=== PATIENT | female | born 1990 | race Caucasian/White ===

== ENCOUNTER → 2019-12-23 10:46 | Outpatient (CLI) | payer OTHER, MEDICAID, SELFPAY ==
--- NOTE | 2019-12-23 10:48 | DI.US.S_ITS ---
PROCEDURE: US OB LIMITED INDICATIONS: ULTRASOUND FOR DATES. OUTSIDE/PRIOR DATING DATA: Last menstrual period (LMP): 08/2119. LMP-based estimated date of delivery (GRISELDA): 05/28/20. First dating scan (date and location): 12/23/19. Estimated date of delivery (GRISELDA) from first dating scan: 05/31/20. TECHNIQUE: Real-time scanning was performed of the fetus, with image documentation and biometric measurements. Endovaginal scanning: None COMPARISON: None. FINDINGS: General: A single living intrauterine gestation is present. Presentation: Breech. Placenta: Placental position is breech, without previa. Lower placental edge 2 cm or less from internal cervical os qualifies as low lying placenta. Amniotic fluid index: Posterior cm, normal range is 5-24 cm. heart rate: 143 beats per beats per minute. Maternal cervical canal: 5.0 cm long. Normal lower limit is 2.5 cm. biometrics: Biparietal diameter: 17 weeks 2 days Head circumference: 16 weeks 6 days Abdominal circumference: 17 weeks 2 days Femur length: 16 weeks 6 days Estimated gestational age from initial scan: 17 weeks 1 day Composite gestational age from present scan: 17 weeks 1 day Estimated weight and percentile: 181 g Measurement variability for biometric dating: +/- 7 days from 14 weeks to 15 weeks 6 days gestation, +/- 10 days from 16 weeks to 21 weeks 6 days gestation, +/- 2 weeks from 22 weeks to 27 weeks 6 days gestation, +/- 3 weeks for 28 weeks gestation or later. weight reference: 4500 g or EFW >90/95% is considered macrosomia or large for gestational age. EFW <10% is small for gestational age. EFW 5% or less is considered intra-uterine growth restriction. Other: Limited anatomic survey. IMPRESSION: 1. Single living IUP with mean composite gestational age of 17 weeks 1 day corresponding to ultrasound GRISELDA of 05/31/20. 2. Limited anatomic survey. Followup recommended. Dictated by: Edison FISHER Interpreted: Danuta Vargas MD on 12/23/2019 at 14:06 Approved by: Danuta Vargas M.D. on 12/23/2019 at 14:16
== END ==
PROVIDERS: Referring Provider Family Medicine; Visit Provider Family Medicine
DX: Z36.87 Encounter for antenatal screening for uncertain dates (principal); Z3A.17 17 weeks gestation of pregnancy
CPT/HCPCS: 76801; 76815

== ENCOUNTER → 2020-01-09 09:30 | Outpatient (CLI) | payer OTHER, MEDICAID, SELFPAY ==
--- NOTE | 2020-01-09 09:34 | DI.US.S_ITS ---
PROCEDURE: US OB >= 14 WEEKS FETUS INDICATIONS: ANATOMY OUTSIDE/PRIOR DATING DATA: Last menstrual period (LMP): 08/2119. LMP-based estimated date of delivery (GRISELDA): 05/28/20. First dating scan (date and location): 12/23/19. Estimated date of delivery (GRISELDA) from first dating scan: 05/31/20. TECHNIQUE: Real-time scanning was performed of the fetus, with image documentation and biometric measurements. COMPARISON: [facility], OB LIMITED, 12/23/2019, 11:15. FINDINGS: General: A single live intrauterine gestation is present. Presentation: Transverse, with the head to the maternal right. Placenta: Placental position is posterior. There is a marginal placenta previa seen, as seen on image 8. Amniotic fluid index: 12.3 cm, normal range is 5-24 cm. heart rate: 156 beats per minute. Maternal cervical canal: 5.7 cm long. Normal lower limit is 2.5 cm. biometrics: Biparietal diameter: 4.3 cm equals 18 weeks 6 days Head circumference: 16.8 cm equals 19 weeks 3 days Abdominal circumference: 13.8 cm equals 19 weeks 2 days Femur length: 3.2 cm equals 20 weeks Estimated gestational age from initial scan: 19 weeks 4 days Composite gestational age from present scan: 19 weeks 3 days Estimated weight and percentile: 297 g, 42nd percentile Measurement variability for biometric dating: +/- 7 days from 14 weeks to 15 weeks 6 days gestation, +/- 10 days from 16 weeks to 21 weeks 6 days gestation, +/- 2 weeks from 22 weeks to 27 weeks 6 days gestation, +/- 3 weeks for 28 weeks gestation or later. weight reference: 4500 g or EFW >90/95% is considered macrosomia or large for gestational age. EFW <10% is small for gestational age. EFW 5% or less is considered intra-uterine growth restriction. Anatomic survey: Neuro: Ventricles are non-dilated at less than 10 mm. Cisterna magna is normal at 3-11 mm. Cerebellum is normal in size and morphology. Nuchal skin fold: Normal at less than 6 mm between 14-21 weeks gestational age. Face: Nose and lips, facial profile are normal. Spine: No evidence for spina bifida. Heart: 4-chambered heart is present, with normal ventricular outflow tracts. Diaphragm: Diaphragm is intact. Stomach: Left-sided stomach is present. Kidneys: No hydronephrosis. Normal is less than 5 mm in 2nd trimester, less than 7 mm in 3rd trimester. Cord: 3-vessel cord has orthotopic insertion. Bladder: Normal in size. Extremities: All 4 extremities identified. IMPRESSION: No anatomic abnormalities are identified. Normal interval growth when compared to the prior ultrasound examination. A marginal placenta previa is seen. Dictated by: Alvin Copeland M.D. on 01/09/2020 at 9:37 Approved by: Alvin Copeland M.D. on 01/09/2020 at 9:40
== END ==
PROVIDERS: Referring Provider Family Medicine; Visit Provider Family Medicine
DX: Z36.89 Encounter for other specified antenatal screening (principal); Z34.02 Encounter for supervision of normal first pregnancy, second trimester
CPT/HCPCS: 76811

== ENCOUNTER → 2020-02-10 09:16 | Outpatient (CLI) | payer OTHER, MEDICAID, SELFPAY ==
--- NOTE | 2020-02-10 09:18 | DI.US.S_ITS ---
PROCEDURE: US OB LIMITED INDICATIONS: MARGINAL PLACENTA PREVIA OUTSIDE/PRIOR DATING DATA: Last menstrual period (LMP): 08/22/19. LMP-based estimated date of delivery (GRISELDA): 05/28/20. First dating scan (date and location): 12/23/19. Estimated date of delivery (GRISELDA) from first dating scan: 05/31/20. TECHNIQUE: Real-time scanning was performed of the fetus, with image documentation. COMPARISON: [facility], OB >= 14 WEEKS FETUS, 01/09/2020, 9:55. [facility], OB LIMITED, 12/23/2019, 11:15. FINDINGS: A single living intrauterine gestation is present. Presentation: Vertex. Placenta: Placental position is posterior. Placenta is approximately 4.8 cm from cervical os. Amniotic fluid index: Not measured heart rate: 152 beats per minute. Maternal cervical canal: 5.3 cm long. Estimated gestational age from initial scan: 24 weeks one day. IMPRESSION: 1. Placenta is approximately 4.8 cm from the cervical os. Dictated by: Danuta Vargas M.D. on 02/10/2020 at 15:09 Approved by: Danuta Vargas M.D. on 02/10/2020 at 15:11
== END ==
PROVIDERS: Referring Provider Family Medicine; Visit Provider Family Medicine
DX: O44.22 Partial placenta previa NOS or without hemorrhage, second trimester (principal); Z3A.24 24 weeks gestation of pregnancy
CPT/HCPCS: 76815

== ENCOUNTER → 2020-02-17 10:02 | Outpatient (CLI) | payer OTHER, MEDICAID, SELFPAY ==
[2020-02-17 11:04] LABS: Add Manual Diff / Slide Review NO; Basophils Absolute Auto 0 /uL (0-100); Basophils Percent Auto 0.3 % (0-2); Eosinophils Absolute Auto 100 /uL (0-450); Eosinophils Percent Auto 0.9 % (2-4); Hematocrit 32.9 % (36-46); Hemoglobin 11.6 g/dL (12.0-16.0); Lymphocytes Absolute Auto 1300 /uL (1100-4500); Lymphocytes Percent Auto 14.9 % (25-40); Mean Corpuscular HGB Conc 35.3 % (30-36); Mean Corpuscular Hemoglobin 32.4 PG (26-34); Mean Corpuscular Volume 91.7 fL (80-100); Monocytes Absolute Auto 600 /uL (0-900); Monocytes Percent Auto 7.4 % (3-14); Neutrophils Absolute Auto 6700 /uL (1500-7000); Neutrophils Percent Auto 76.5 % (50-75); Platelet Count 214 X10^3/uL (150-400); Red Blood Cell Count 3.59 X10^6/uL (4.0-5.2); Red Cell Distribution Width 13.2 % (11.6-14.8); White Blood Cell Count 8.8 X10^3/uL (4.5-11.0)
[2020-02-17 19:27] LABS: HIV 1 & 2 Ab/Ag 4th Gen Combo NEGATIVE (NEGATIVE); Hep C Virus Ab w/Reflex Quant NEGATIVE s/c (NEGATIVE); Hepatitis B Surface Antigen NEGATIVE s/c (NEGATIVE); Rubella Antibody IgG 7.2 IU/mL (>15)
[2020-02-18 05:33] LABS: RPR Screen Non Reactive (Non Reactive)
[2020-02-18 05:36] LABS: Varicella IgG Antibody 293 index (Immune >165)
[2020-02-19 15:51] LABS: Appearance Urine UA CLEAR; Bilirubin Urine UA NEGATIVE (NEGATIVE); Color Urine UA YELLOW; Glucose Urine UA NEGATIVE (Negative); Ketones Urine UA NEGATIVE (NEGATIVE); Leukocyte Esterase Urine UA 3+ (NEGATIVE); Nitrite Urine UA NEGATIVE (Negative); Occult Blood Urine UA NEGATIVE (Negative); Protein Urine UA NEGATIVE (Negative); Specific Gravity Urine UA 1.015 (1.000-1.035); Urobilinogen Urine UA 0.2 E.U./dL (0.2)
[2020-02-19 15:56] LABS: RBC Urine None Seen (0-5/HPF); pH Urine UA 6.5 (4.5-8.0)
[2020-02-19 16:00] LABS: Amorphous Sediment Urine 1+; Bacteria Urine Moderate (10-30); Squamous Epithelial Cell Urine 1-5 /HPF (0-5/HPF); WBC Urine 5-10/HPF (0-5/HPF)
[2020-02-19 16:01] LABS: Culture Indicated Urine Specimen Cultured
== END ==
PROVIDERS: Referring Provider Family Medicine; Visit Provider Family Medicine
DX: Z34.81 Encounter for supervision of other normal pregnancy, first trimester (principal)
CPT/HCPCS: 36415; 80055; 81003; 81015; 85025; 86592; 86762; 86787; 86803; 86850; 86900; 86901; 87086; 87340; 87389

== ENCOUNTER → 2020-03-16 13:01 | Outpatient (CLI) | payer OTHER, MEDICAID, SELFPAY ==
[2020-03-16 15:54] LABS: Add Manual Diff / Slide Review NO; Basophils Absolute Auto 0 /uL (0-100); Basophils Percent Auto 0.4 % (0-2); Eosinophils Absolute Auto 100 /uL (0-450); Eosinophils Percent Auto 1.1 % (2-4); Hemoglobin 11.6 g/dL (12.0-16.0); Lymphocytes Absolute Auto 1500 /uL (1100-4500); Lymphocytes Percent Auto 14.9 % (25-40); Mean Corpuscular HGB Conc 35.2 % (30-36); Mean Corpuscular Hemoglobin 32.1 PG (26-34); Mean Corpuscular Volume 91.4 fL (80-100); Monocytes Absolute Auto 700 /uL (0-900); Monocytes Percent Auto 6.9 % (3-14); Neutrophils Absolute Auto 7800 /uL (1500-7000); Neutrophils Percent Auto 76.7 % (50-75); Platelet Count 244 X10^3/uL (150-400); Red Blood Cell Count 3.61 X10^6/uL (4.0-5.2); Red Cell Distribution Width 12.9 % (11.6-14.8); White Blood Cell Count 10.2 X10^3/uL (4.5-11.0)
[2020-03-16 16:02] LABS: GTT (PREG) 1 Hour PP 50gm Dose 146 mg/dL (76-139)
== END ==
PROVIDERS: PCP Family Medicine; Referring Provider Family Medicine; Visit Provider Family Medicine
DX: Z34.81 Encounter for supervision of other normal pregnancy, first trimester (principal)
CPT/HCPCS: 36415; 82950; 85025

== ENCOUNTER 2020-03-23 09:58 | Outpatient (CLI) | payer OTHER, MEDICAID, SELFPAY ==
[2020-03-23 12:14] LABS: Glucose Fasting Gestational 83 mg/dL (76-95)
[2020-03-23 13:35] LABS: Glucose 1 Hour Gest 134 mg/dL (76-180)
[2020-03-23 14:04] LABS: Glucose Tol Interp,Gestational INTERPRETATION
[2020-03-23 14:10] LABS: Glucose 2 Hour Gest 133 mg/dL (76-155)
[2020-03-23 15:01] LABS: Glucose 3 Hour Gest 117 mg/dL (76-140)
== END 2020-04-13 11:44 ==
LOC: LAB 09:59
PROVIDERS: PCP Family Medicine; Referring Provider Family Medicine; Visit Provider Family Medicine
DX: O26.899 Other specified pregnancy related conditions, unspecified trimester (principal); R73.09 Other abnormal glucose
CPT/HCPCS: 36415; 59025; 82951; 82952; 84112

== ENCOUNTER 2020-04-13 11:09 | Outpatient (CLI) | payer OTHER, MEDICAID, SELFPAY ==
--- NOTE | 2020-04-13 11:35 | PM.OBTRLD ---
Visit Information Visit Information Date of evaluation: 04/13/20 Primary OB Provider: Taylor Pacheco Reason for Evaluation: Yes rupture of membranes Comments/Additional reasons for admission: Pt leaking fluid through the night, starting around 9pm. No vaginal bleeding. She has been cramping more as well. Slightly nauseous this morning. [facility] Medical History (Updated 04/13/20 @ 11:37 by Taylor Pacheco MD) Anxiety and depression (Acute) Dental root implant present (Acute) Migraine (Acute) Pyloric stenosis (Acute) (spontaneous vaginal delivery) (Acute) Surgical History (Updated 11/20/19 @ 14:28 by Meg Humphrey RN) [place] teeth extracted (Acute ~2013) Family History (Updated 11/20/19 @ 14:29 by Meg Humphrey, MALIK) Mother Family estrangement Father Lung cancer Epilepsy Grandfather MVA (motor vehicle accident) Grandmother MVA (motor vehicle accident) Social History marital status: unknown number of children: 1 household members: children pets and animals: Yes (cat X 1 and aware) education level: high school occupational status: employed current occupational exposures/hazards: No special amber needs: No Smoking Status: Never smoker second hand exposure: No alcohol intake: former substance use type: does not use Evaluation Evaluation Baseline heart rate: 135 Variability: Moderate (11-25) monitor accelerations: Present monitor decelerations: Absent Non-invasive Membranes Rupture Test: negative Diagnosis, Plan/Disposition Final Diagnosis (1) Amniotic fluid leaking: Status: Acute Plan/Disposition Plan: at 33w4d. Pt here due to concern for ROM. Amnisure negative. No evidence of ROM. No contractions on monitor. Safe for d/c home. OB Disposition: home
== END 2020-04-13 11:45 | disposition home or self-care (01) ==
LOC: LABOR 12:26 → OB 04-22 13:17
PROVIDERS: PCP Family Medicine; Referring Provider Family Medicine; Visit Provider Family Medicine
DX: O26.893 Other specified pregnancy related conditions, third trimester (principal); N89.8 Other specified noninflammatory disorders of vagina; Z3A.33 33 weeks gestation of pregnancy
CPT/HCPCS: 59025; G0378; G0379

== ENCOUNTER → 2020-04-27 11:32 | Outpatient (CLI) | payer OTHER, MEDICAID, SELFPAY ==
[2020-04-28 09:36] LABS: Strep Grp B PCR NEG for Grp B Strep
== END ==
PROVIDERS: PCP Family Medicine; Visit Provider Family Medicine
DX: Z34.03 Encounter for supervision of normal first pregnancy, third trimester (principal)
CPT/HCPCS: 87653

== ENCOUNTER 2020-05-21 06:17 | Inpatient (IN) | payer OTHER, MEDICAID, SELFPAY ==
--- NOTE | 2020-05-21 07:08 | PM.OBHP.1 ---
OB HPI Date/Time Date of admission: 05/21/20 Date Patient Seen: 05/21/20 History of Present Condition Chief complaint: EVALUATION OF LABOR : 2 Para: 1 Estimated Date of Delivery: 05/28/20 Estimated Gestational Age (weeks): 39w0d Narrative: [place] Bethea is a 29 year old at 39w0d here with regular painful contractions. Pt reports contractions starting around 3am, increasing in frequency and intensity since then. No LOF or vaginal bleeding. History of Present care: good care, initiated at week # (13) and pounds weight gain (28) Ultrasounds: normal 1st trimester US and normal mid trimester US (marginal previa resolved on repeat ultrasound) Obstetrical complications: none Medical complications: other (COVID + asymptomatic 2nd trimester, repeat testing negative) Preadmission Labs Blood type: A (+) positive -: Antibody screen: negative, GBS status: negative, HBsAG: negative, HIV: negative and RPR/VDLR: negative -: Rubella: not immune and Varicella: immune HCT: 33.0 HCAB: negative 1 hr GTT: 146 3 hr GTT: 1 hr (134), 2 hr (133) and 3 hr (117) Fasting blood glucose: 83 Prior (ies) History: 09/28/16 - at 39w2d, 8lb2oz male, no complications PFSH Medical History (Updated 04/27/20 @ 11:25 by Taylor Pacheco MD) Anxiety and depression (Acute) Dental root implant present (Acute) Migraine (Acute) Pyloric stenosis (Acute) (spontaneous vaginal delivery) (Acute) Surgical History (Updated 11/20/19 @ 14:28 by Meg Humphrey RN) [place] teeth extracted (Acute ~2013) Family History (Updated 11/20/19 @ 14:29 by Meg Humphrey RN) Mother Family estrangement Father Lung cancer Epilepsy Grandfather MVA (motor vehicle accident) Grandmother MVA (motor vehicle accident) Social History marital status: unknown number of children: 1 household members: children pets and animals: Yes (cat X 1 and aware) education level: high school occupational status: employed current occupational exposures/hazards: No special amber needs: No Smoking Status: Never smoker second hand exposure: No alcohol intake: former substance use type: does not use Meds Home Medications and Allergies Home Medications Medication Instructions Recorded Confirmed Type prenat.vits,ld,rin-aubg-ovjjm 1 tab PO DAILY 11/20/19 04/13/20 History promethazine 25 mg tablet 25 mg PO TID PRN #30 tab 12/13/19 04/13/20 Rx metoclopramide HCl 5 mg tablet 5 mg PO QACHS #20 tab 03/09/20 04/13/20 Rx Allergies Allergy/AdvReac Type Severity Reaction Status Date / Time No Known Drug Allergies Allergy Verified 05/21/20 07:37 Exam Narrative Exam Narrative: Gen: NAD, sitting comfortably in bed, appears well CV: RRR, no murmurs Resp: clear to auscultation bilaterally Abd: soft, gravid, nondistended, nontender Ext: no edema Objective Labs Result Diagrams: 05/21/20 07:15 Assessment and Plan Assessment and Plan Assessment and Plan narrative: 29yo at 39w0d who presented in active labor. GBS negative, Rh positive. - Expectant management - FHT reassuring - GBS negative, no prophylaxis indicated - Epidural for pain control now.
[2020-05-21] MEDS: LACTATED RINGERS 1,000 ML 100 ML IV ×2 (07:15→08:45)
[2020-05-21 07:35] VITALS: BP 126/92
[2020-05-21] MEDS: FENT 2MCG/ML BUPIV 0.125% EPI 200 MCG/100 ML PLAST..BAG 8 MCG EPIDURAL (07:51)
[2020-05-21 08:36] LABS: Add Manual Diff / Slide Review NO; Basophils Absolute Auto 100 /uL (0-100); Basophils Percent Auto 0.7 % (0-2); Eosinophils Absolute Auto 100 /uL (0-450); Eosinophils Percent Auto 0.4 % (2-4); Hematocrit 36.6 % (36-46); Hemoglobin 12.1 g/dL (12.0-16.0); Lymphocytes Absolute Auto 1800 /uL (1100-4500); Lymphocytes Percent Auto 12.5 % (25-40); Mean Corpuscular HGB Conc 32.9 % (30-36); Mean Corpuscular Hemoglobin 29.3 PG (26-34); Monocytes Absolute Auto 800 /uL (0-900); Monocytes Percent Auto 5.9 % (3-14); Neutrophils Absolute Auto 11400 /uL (1500-7000); Neutrophils Percent Auto 80.5 % (50-75); Platelet Count 243 X10^3/uL (150-400); Red Blood Cell Count 4.11 X10^6/uL (4.0-5.2); Red Cell Distribution Width 13.6 % (11.6-14.8); White Blood Cell Count 14.2 X10^3/uL (4.5-11.0)
[2020-05-21 09:26] LABS: COVID19 -Nasal RAPID Negative (Negative)
--- NOTE | 2020-05-21 13:02 | PM.OBPNLAB ---
Date/Time Date Patient Seen: 05/21/20 Time Patient Seen: 13:02 Pain Control Pain control: epidural Pelvic Exam Comments: anterior rim/100/0. AROM with examination with production of meconium-stained fluid. Contractions Contraction frequency (min): 2 Status status: Category l Heart Rate Baseline: 130 Monitor Accelerations: Present Monitor Decelerations: Absent Monitor Variability: Moderate Assessment and Plan Comments: 29yo at 39w0d who presented in active labor. GBS negative, Rh positive. AROM with meconium-stained fluids. - Expectant management - FHT reassuring - GBS negative, no prophylaxis indicated - Epidural for pain control now.
[2020-05-21] MEDS: OXYTOCIN 10 UNIT/ML VIAL 20 UNIT (13:46)
--- NOTE | 2020-05-21 14:33 | PM.OBPRVD ---
Labor & Delivery Delivery date: 05/21/20 Intrapartal events: None Cervical ripening method: none Induction method: none Delivery augmentation: rupture of membranes Delivery monitor: external FHT Route of delivery: Episiotomy description: None L&D Laceration Description: Perineal - 2nd Degree Estimated blood loss (mL): 200 Anesthesia type: Epidural Complications: None Narrative: PROCEDURE: at 39w0d presented in active labor and was admitted to Labor and Delivery. The patient progressed through the 1st stage over 10 hours. Pain was controlled with an epidural. AROM was performed with production of meconium-stained fluid. The patient progressed through the 2nd stage over 30 minutes and delivered a viable male with APGARs 8/9 at 13:36 via without complications. Nuchal cord x1 was reduced immediately after delivery, and the cord was clamped and cut after it stopped pulsating. The perineum and vagina were inspected with 2nd degree laceration repaired with 3-O Chromic PREPROCEDURE DIAGNOSIS: Intrauterine at 39w0d GBS negative RH positive POSTPROCEDURE DIAGNOSIS: Intrauterine at 39w0d, delivered Same as preprocedure ROM APPEARANCE: Meconium-stained BABY A WEIGHT: 7lb9oz BABY A NUCHAL CORD: x1, reduced after delivery PLACENTA DELIVERY TIME: 13:42 PLACENTA APPEARANCE: Intact Baby 1: Infant gender: Male Presentation: vertex position: Right Occiput Anterior Placenta delivery description: Spontaneous cord vessel description: 3 Vessels score (1 min): 8 score (5 min): 9 Plan for aftercare: Normal care
[2020-05-21] MEDS: IBUPROFEN 600 MG TABLET PO (22:19)
[2020-05-21] MEDS: ACETAMINOPHEN 325 MG TABLET 650 MG PO (22:20)
[2020-05-22] MEDS: IBUPROFEN 600 MG TABLET PO (06:38)
[2020-05-22] MEDS: ACETAMINOPHEN 325 MG TABLET 650 MG PO (06:38)
[2020-05-22] MEDS: LANOLIN OINT 7 GM 1 APPLIC TOP (06:39)
--- NOTE | 2020-05-22 08:06 | P.DS_ITS ---
Discharge Providers Provider Date of admission: 05/21/20 06:17 Discharge Date: 05/22/20 Primary care physician: Taylor Pacheco MD Consults: 05/21/20 07:15 Consult to Anesthesiology Urgent Comment: Consulting Provider: Anesthesiologist Reason for consultation: epidural 05/22/20 14:20 Consult to Internal Medicine Specialist Routine Comment: Discharge provider: Radha Jha DO Summary Hospital Course Date Patient Seen: 05/22/20 Time Patient Seen: 07:45 Procedures: Spontaneous vaginal delivery Epidural analgesia Hospital Course: Patient is a 29-year-old now 2 after uncomplicated spontaneous vaginal delivery on 05/21/20. Patient presented in active labor, received an epidural and went on to deliver a vigorous male . A second-degree laceration was repaired. course uncomplicated. Patient is ambulating, voiding, passing flatus without difficulty. Vaginal bleeding is light to moderate. Pain controlled with ibuprofen only. is going well. No issues in the . Advised patient to call for fevers, severe pain or bleeding through more than a pad an hour. Follow-up with Dr. Pacheco in 6 weeks. Peripartum Data Delivery Method: Natural Vaginal Laceration Description: Vaginal - 2nd Degree complications: none [place] 1: Gender: Male Disposition of : home Discharge Diagnosis (1) Spontaneous vaginal delivery: Status: Acute (2) 39 weeks gestation of : Status: Acute Time Spent with Patient Time attestation: Total time spent providing and/or coordinating discharge services: Time spent: Less than 30 minutes Objective Labs Result Diagrams: 05/21/20 07:15 Labs: Laboratory Results - last 24 hr 05/21/20 05/21/20 05/21/20 07:15 07:15 08:15 WBC 14.2 H RBC 4.11 Hgb 12.1 Hct 36.6 MCV 89.0 MCH 29.3 MCHC 32.9 RDW 13.6 Plt Count 243 Neut % (Auto) 80.5 H Lymph % (Auto) 12.5 L [place] % (Auto) 5.9 Eos % (Auto) 0.4 L Baso % (Auto) 0.7 Neut # (Auto) 86399 H Lymph # (Auto) 1800 [place] # (Auto) 800 Eos # (Auto) 100 Baso # (Auto) 100 COVID-19 PCR Negative Blood Type A Positive Antibody Screen Negative Exam Vital Signs (past 8 hours): Temperature 98.2? blood pressure 123/76 heart rate 69 respirations 18 Narrative Exam Narrative: General: Awake and alert, no acute distress. HEENT: NCAT, EOMI, moist oral mucosa CV: Regular rate and rhythm, no murmurs, rubs or gallops Lungs: CTAB, no wheezes, rales, or rhonchi Abdomen: Soft, nontender; bowel tones active; uterus firm 2 cm below umbilicus Extremities: Warm, no edema, 2+ pedal pulses bilaterally Discharge Plan Discharge Plan Patient Disposition: Home Discharge comment: Call for fevers, severe pain or bleeding through more than a pad an hour period Discharge orders & Medications Prescriptions: New docusate sodium [DOK] 100 mg Capsule 100 mg PO DAILY Qty: 30 RF: 0 ibuprofen 600 mg Tablet 600 mg PO Q6HR PRN (Reason: Pain, Mild (1-3)) Qty: 30 RF: 0 Continued prenat.vits,ld,ryh-skrc-wybgo Tablet 1 tab PO DAILY RF: 0 Discontinued promethazine 25 mg tablet 25 mg PO TID PRN (Reason: headache) Qty: 30 RF: 0 metoclopramide HCl 5 mg tablet 5 mg PO QACHS Qty: 20 RF: 0 Follow up/Referrals: Taylor Pacheco MD [Primary Care Provider] - Diet/Activity/Treatments Diet: Diet as Tolerated Skin/Wound/Dressing Care Report to your healthcare provider any signs of infection, such as:: chills, fever, night sweats, increased pain, unusual drainage and unusual redness Visit Report/Discharge Packet Visit Report Forms: Patient Portal/API Discharge Data Primary Care Provider: Taylor Pacheco
[2020-05-22 15:51] VITALS: BP 119/75; PULSE 79; RESP 16; TEMP 36.2
[2020-05-22] MEDS: MEASLES,MUMPS,RUBELLA VACC/PF 0.5 ML VIAL SUBCUT (16:22)
== END 2020-05-22 16:45 | disposition home or self-care (01) | DRG 560 ==
PROVIDERS: Admitting Provider Family Medicine; PCP Family Medicine; Referring Provider Obstetrics & Gynecology; Visit Provider Family Medicine
DX: O70.1 Second degree perineal laceration during delivery (principal); O69.81X0 Labor and delivery complicated by cord around neck, without compression, not applicable or unspecified; O77.0 Labor and delivery complicated by meconium in amniotic fluid; Z3A.39 39 weeks gestation of pregnancy; Z37.0 Single live birth; Z11.59 Encounter for screening for other viral diseases
CPT/HCPCS: 01967; 59050; 59409; 85025; 86850; 86900; 86901; 87635; G0379; J2590

== ENCOUNTER → 2021-02-10 14:36 | Outpatient (CLI) | payer OTHER, MEDICAID, SELFPAY ==
--- NOTE | 2021-02-10 14:37 | DI.RAD.S_ITS ---
PROCEDURE: XR TIBIA FIBULA LT 2V INDICATIONS: left narayan pain TECHNIQUE: 2 views of the tibia and fibula were acquired. COMPARISON: None. FINDINGS: Bones: No acute fractures or dislocations. No suspicious bony lesions. Soft tissues: No suspicious soft tissue calcifications or masses. IMPRESSION: No acute osseous abnormality. If clinical suspicion and/or symptoms persist, additional imaging with repeat plain films, or advanced imaging (e.g. CT, MRI) may be helpful for further assessment. Dictated by: Paul Barrett M.D. on 02/10/2021 at 15:02 Approved by: Paul Barrett M.D. on 02/10/2021 at 15:02
== END ==
PROVIDERS: PCP Family Medicine; Referring Provider Physician Assistant; Visit Provider Physician Assistant
DX: M89.8X6 Other specified disorders of bone, lower leg (principal); M79.662 Pain in left lower leg
CPT/HCPCS: 73590

== ENCOUNTER → 2021-12-31 11:24 | Outpatient (CLI) | payer OTHER, MEDICAID, SELFPAY ==
--- NOTE | 2021-12-31 11:27 | DI.RAD.S_ITS ---
PROCEDURE: XR KNEE LT 3V INDICATIONS: left knee pain d/t injury TECHNIQUE: 3 views of the knee were acquired. COMPARISON: None. FINDINGS: Bones: No fractures or dislocations. No suspicious bony lesions. Mild narrowing of the medial femorotibial joint. Soft tissues: No joint effusion. No suspicious soft tissue calcifications. IMPRESSION: Mild medial femorotibial early joint degeneration. Dictated by: Edison Ken [facility] Interpreted: Artem Kaplan MD on 12/31/2021 at 12:08 Transcribed by: RADHA on 12/31/2021 at 12:08 Approved by: Artem Kaplan M.D. on 12/31/2021 at 12:16
== END ==
PROVIDERS: PCP Family Medicine; Referring Provider Family Medicine; Visit Provider Family Medicine
DX: M25.562 Pain in left knee (principal); M17.12 Unilateral primary osteoarthritis, left knee
CPT/HCPCS: 73562